=== PATIENT | male | born 1970 | race Two or more races ===

== ENCOUNTER 2019-02-26 19:53 | Emergency (ER) | payer OTHER ==
[~2019-02-26] VITALS: Ht 165.1 cm; Wt 95.3 kg
[2019-02-26] MEDS ORDERED: FLUORESCEIN SODIUM OPHTH 1 EA STRIP ONE (20:28)
[2019-02-26] MEDS ORDERED: TETRACAINE HCL/PF 0.5% UD 2 ML BOTTLE ONE (20:28)
--- NOTE | 2019-02-26 20:34 | NUR ---
BIBSELF W/ FAMILY. TO ER BED 1. AAOX4. NO RESP DISTRESS, EVEN AND UNLABORED BREATHING. AMBULATORY. C/O R EYE PAIN S/P PIECE OF METAL WENT IN WHILE CUTTING A PIECE OF METAL PIPE. NOTED REDNESS. PAIN 9/10 BURNING AND THROBBING. VISUAL ACUITY DONE. AWAITING MD FOR ALEXANDER
--- NOTE | 2019-02-26 20:56 | NUR ---
AT BEDSIDE FOR EVAL
[2019-02-26] MEDS ORDERED: OFLOXACIN 0.3% OPHTH 5 ML BOTTLE RIGHTEYE SCH (21:30)
[2019-02-26] MEDS ORDERED: GENTAMICIN OPTH OINT 0.3% 3.5 G TUBE OP ONE (22:00)
[2019-02-26] MEDS ORDERED: TOBRAMYCIN OPHTH 5ML 5 ML BOTTLE ONE (22:20)
--- NOTE | 2019-02-26 22:26 | NUR ---
OXFLOXACIN AND GENTAMYCIN CANCELLED BY HONG PLASCENCIA. PT GIVEN TOBRAMYCIN OPTHALMIC SOLN. ORDERED THEN DISPENSED THE REST OF THE MEDICATION WITH PT PER ORDERED BY PROVIDER.
[2019-02-26] MEDS ORDERED: TOBRAMYCIN OPHTH 5ML 5 ML BOTTLE RIGHTEYE SCH (22:30)
--- NOTE | 2019-02-26 23:30 | NUR ---
Patient discharged to home in stable condition. Written and verbal after care instructions given. Patient verbalizes understanding of instruction. Pt ambulatory with a steady gait
[2019-02-26 23:35] VITALS: BP 138/83
== END 2019-02-26 23:30 | disposition home or self-care (01) ==
LOC: ER 20:08
DX: T15.01XA Foreign body in cornea, right eye, initial encounter (principal); W45.8XXA Other foreign body or object entering through skin, initial encounter; Y93.89 Activity, other specified; Y92.89 Other specified places as the place of occurrence of the external cause; Y99.8 Other external cause status

== ENCOUNTER 2022-10-12 18:48 | Emergency (ER) | payer MEDICAID, OTHER ==
[~2022-10-12] VITALS: Ht 165.1 cm; Wt 96.2 kg
--- NOTE | 2022-10-12 19:54 | NUR ---
BIBWIFE. BRIGHT RED BLOOD WHEN HAVING BM X 1 WEEK. PT DENIES ANY ABDOMINAL PAIN OR DISCOMFORT. AXO4 AMBULATORY.
--- NOTE | 2022-10-12 20:35 | NUR ---
IV STARTED ON L AC 20G
[2022-10-12 20:44] LABS: BASOPHILS # (AUTO) 0.1 K/uL (0.0-0.2); BASOPHILS % (AUTO) 0.7 % (0.0-2.0); EOSINOPHILS % (AUTO) 0.5 % (0.0-6.0); HEMATOCRIT 43 % (39-51); HEMOGLOBIN 14.3 g/dL (13.5-17.5); LYMPHOCYTES % (AUTO) 27.7 % (20.0-44.0); MEAN CORPUSCULAR HGB CONC 33 g/dl (31.0-36.0); MEAN CORPUSCULAR VOLUME 95 fL (80-96); MONOCYTES # (AUTO) 0.7 K/uL (0.1-1.30); MONOCYTES % (AUTO) 9.5 % (2.0-12.0); NEUTROPHILS # (AUTO) 4.4 K/uL (1.8-8.9); NEUTROPHILS % (AUTO) 61.6 % (43.0-81.0); PLATELET COUNT (AUTO) 306 K/uL (150-450); RED BLOOD CELL COUNT(AUTO) 4.55 MIL/uL (4.5-6.0); WHITE BLOOD COUNT (AUTO) 7.1 K/uL (4.3-11.0)
[2022-10-12 21:00] LABS: ALANINE AMINOTRANSFERASE 41 U/L (12-78); ALKALINE PHOSPHATASE 84 U/L (46-116); ASPARTATE AMINOTRANSFERASE 25 U/L (15-37); BILIRUBIN,DIRECT 0.1 mg/dL (0.0-0.2); BILIRUBIN,TOTAL 0.3 mg/dL (0.2-1.0); CALCIUM, SERUM 9.1 mg/dL (8.5-10.1); CARBON DIOXIDE 26 mmol/L (21-32); CHLORIDE 104 mmol/L (98-107); GLUCOSE 100 mg/dL (74-106); POTASSIUM 3.8 mmol/L (3.5-5.1); SODIUM SERUM 140 mmol/L (136-145); TOTAL PROTEIN, SERUM 7.9 g/dL (6.4-8.2); UREA NITROGEN, BLOOD 12 mg/dL (7-18)
[2022-10-12] MEDS ORDERED: HYDR25SU33 RC (21:19)
--- NOTE | 2022-10-12 21:30 | NUR ---
Patient discharged to home in stable condition. Written and verbal after care instructions given. Patient verbalizes understanding of instruction.IV removed. Catheter intact and site benign. Pressure and 4x4 applied to site. No bleeding noted. Pt ambulatory with a steady gait
[2022-10-12 22:47] VITALS: BP 135/89
== END 2022-10-12 21:32 | disposition home or self-care (01) ==
LOC: ER 18:54
DX: K64.8 Other hemorrhoids (principal); Z79.899 Other long term (current) drug therapy
CPT/HCPCS: 36415; 80048-TC; 80076-TC; 84484-TC; 85025-TC